=== PATIENT | male | born 1990 | race Two or more races ===

== ENCOUNTER 2017-05-02 10:16 | Inpatient (IN) | payer MEDICAID ==
[~2017-05-02] VITALS: Ht 177.8 cm; Wt 68.2 kg
[~2017-05-02 10:16] MED LIST: IBUP-1986 PO; NO HOME MEDS
[2017-05-02] MEDS ORDERED: TETanus/Pertussis (Acell)/Diphther VAC/PF (Tdap-Adult) 0.5ml syringe IM ONE (10:25)
[2017-05-02] MEDS ORDERED: LORazepam 1 MG tablet PO ONE (10:40)
[2017-05-02 10:47] LABS: BASOPHILS # (AUTO) 0.1 X10'3 (0-0.2); BASOPHILS % (AUTO) 0.2 % (0-1); EOSINOPHILS % (AUTO) 0 % (0-6); HEMATOCRIT 47.9 % (42.0-52.0); HEMOGLOBIN 16.8 g/dl (14.0-17.9); LYMPHOCYTES # (AUTO) 1.1 X10'3 (1.1-4.8); LYMPHOCYTES % (AUTO) 3.9 % (21-51); MEAN CORPUSCULAR HEMOGLOBIN 30.5 PG (27.0-31.0); MEAN CORPUSCULAR HGB CONC 35.1 % (33.0-36.5); MEAN CORPUSCULAR VOLUME 86.8 FL (78-98); MEAN PLATELET VOLUME 7.2 FL (7.4-10.4); MONOCYTES # (AUTO) 2.3 X10'3 (0-0.9); MONOCYTES % (AUTO) 8.1 % (2-12); NEUTROPHILS # (AUTO) 25.4 X10'3 (1.8-7.7); NEUTROPHILS % (AUTO) 87.8 % (42-75); PLATELET COUNT 347 X10'3 (140-440); RED BLOOD COUNT 5.51 X10'6 (4.70-6.10); RED CELL DISTRIBUTION WIDTH 12.1 % (11.5-14.5)
[2017-05-02] MEDS ORDERED: diphenhydrAMINE 50 mg/ml inj IM ONE (10:50)
[2017-05-02] MEDS ORDERED: LORazepam 2 mg/ml vial IM ONE (10:50)
[2017-05-02 10:57] LABS: WHITE BLOOD COUNT 28.9 X10'3 (4.5-11.0)
[2017-05-02] MEDS ORDERED: haloperidol lactate 5mg/ml inj IM ONE (11:05)
[2017-05-02 11:07] LABS: ALANINE AMINOTRANSFERASE 51 U/L (12-78); ALBUMIN 4.6 G/DL (3.4-5.0); ALKALINE PHOSPHATASE 98 IU/L (46-116); ANION GAP 14 (8-16); ASPARTATE AMINO TRANSFERASE 79 U/L (10-37); BILIRUBIN,TOTAL 0.8 MG/DL (0.1-1.0); BLOOD UREA NITROGEN 26 MG/DL (7-18); BUN/CREATININE RATIO 10.5 (5.4-32.0); CALCIUM 9.4 MG/DL (8.5-10.1); CHLORIDE 96 MMOL/L (99-107); CREATININE 2.48 MG/DL (0.60-1.10); GLUCOSE 88 MG/DL (70-104); POTASSIUM 4.5 MMOL/L (3.5-5.1); SODIUM 135 MMOL/L (135-145); TOTAL CARBON DIOXIDE 25.3 MMOL/L (24-32); eGFR 31 ML/MIN
[2017-05-02 11:10] LABS: ETHANOL < 0.010 GM/DL (0.0-0.010)
[2017-05-02 11:16] LABS: TOTAL CELLS COUNTED 100
[2017-05-02 11:19] LABS: PLATELET ESTIMATE NORMAL; TOXIC GRANULATION 1+; TOXIC VACUOLATION FEW
[2017-05-02 11:31] LABS: CLARITY,URINE CLOUDY (Clear); COLOR,URINE YELLOW (Yellow); GLUCOSE, URINE NEGATIVE (Neg); KETONES,URINE TRACE mg/dl (Neg); LEUKOCYTE ESTERASE ,URINE NEGATIVE (Neg); NITRITES, URINE NEGATIVE (Neg); OCCULT BLOOD,URINE LARGE (Neg); PH,URINE 5.5 (4.8-8.0); PROTEIN,URINE 100 mg/dl (Neg); UA COLLECTION TYPE STRAIGHT CATH; UROBILINOGEN,URINE 0.2 E.U/dL (0.2-1.0)
[2017-05-02 11:40] LABS: SQUAMOUS EPITHELIAL CELL,UR MODERATE /LPF (FEW)
[2017-05-02 11:41] LABS: SPERM MANY /HPF (NEGATIVE); URINE AMPHETAMINE SCREEN POSITIVE (Neg); URINE BARBITUATE SCREEN NEGATIVE (Neg); URINE BENZODIAZEPINES SCREEN NEGATIVE (Neg); URINE CANNABINOID SCREEN NEGATIVE (Neg); URINE COCAINE SCREEN NEGATIVE (Neg); URINE METHADONE SCREEN NEGATIVE (Neg); URINE OPIATE SCREEN NEGATIVE (Neg); URINE PHENCYCLIDINE SCREEN NEGATIVE (Neg)
[2017-05-02 11:43] LABS: AMORPHOUS URATES 2+; BACTERIA,URINE FEW /HPF (Neg); RBC,URINE 0-2 /HPF (0-2); WBC,URINE 0-4 /HPF (0-4)
[2017-05-02] MEDS ORDERED: CefTRIAXone 2gm/D5W 50ml 50 ML IV ONE (12:25)
[2017-05-02] MEDS ORDERED: normal saline 1000ML IV soln IV ONE (12:25)
[2017-05-02 13:11] LABS: MAGNESIUM 3.8 MG/DL (1.5-2.4)
[2017-05-02 13:12] LABS: CKMB RELATIVE INDEX 0.6 RATIO (0-2.5); CREATINE KINASE 3238 U/L (39-308)
[2017-05-02] MEDS: normal saline 1000ml 1,000 ML IV SCH (17:21)
[2017-05-02] MEDS: LORazepam 2 mg/ml vial IV SCH (18:29)
[2017-05-02] MEDS ORDERED: heparin, porcine 5000 units/ml vial SQ SCH (20:00)
[2017-05-02] MEDS: heparin, porcine 5000 units/ml vial SQ SCH (20:13)
[2017-05-03 01:10] VITALS: BP 126/86
[2017-05-03 06:00] VITALS: BP 131/73
[2017-05-03] MEDS: normal saline 1000ml 1,000 ML IV SCH ×4 (06:30→23:30)
[2017-05-03] MEDS: LORazepam 2 mg/ml vial IV SCH ×3 (08:00→12:42)
[2017-05-03] MEDS ORDERED: pantoprazole 40 MG vial IV SCH (08:00)
[2017-05-03] MEDS: CefTRIAXone/D5W-Rocephin 1gm 50 ML IV SCH (09:02)
[2017-05-03] MEDS: pantoprazole 40mg Tablet.DR PO SCH (09:03)
[2017-05-03] MEDS: heparin, porcine 5000 units/ml vial SQ SCH ×2 (09:04→20:00)
[2017-05-03 10:00] VITALS: BP 143/67
[2017-05-03 10:07] LABS: BASOPHILS # (AUTO) 0.1 X10'3 (0-0.2); BASOPHILS % (AUTO) 0.4 % (0-1); EOSINOPHILS # (AUTO) 0.2 X10'3 (0-0.9); EOSINOPHILS % (AUTO) 1.1 % (0-6); HEMATOCRIT 38.2 % (42.0-52.0); HEMOGLOBIN 13.4 g/dl (14.0-17.9); LYMPHOCYTES # (AUTO) 1.6 X10'3 (1.1-4.8); LYMPHOCYTES % (AUTO) 11.5 % (21-51); MEAN CORPUSCULAR HEMOGLOBIN 31.2 PG (27.0-31.0); MEAN CORPUSCULAR HGB CONC 34.9 % (33.0-36.5); MEAN CORPUSCULAR VOLUME 89.3 FL (78-98); MEAN PLATELET VOLUME 7.7 FL (7.4-10.4); MONOCYTES # (AUTO) 1.6 X10'3 (0-0.9); MONOCYTES % (AUTO) 11.1 % (2-12); NEUTROPHILS # (AUTO) 10.7 X10'3 (1.8-7.7); NEUTROPHILS % (AUTO) 75.9 % (42-75); PLATELET COUNT 257 X10'3 (140-440); RED BLOOD COUNT 4.28 X10'6 (4.70-6.10); RED CELL DISTRIBUTION WIDTH 12.3 % (11.5-14.5); WHITE BLOOD COUNT 14.1 X10'3 (4.5-11.0)
[2017-05-03] MEDS: HYDROcodone/acetaminophen 10/325mg tab PO PRN ×3 (10:21→21:29)
[2017-05-03 10:30] LABS: ALBUMIN 2.9 G/DL (3.4-5.0); ANION GAP 10 (8-16); BLOOD UREA NITROGEN 24 MG/DL (7-18); BUN/CREATININE RATIO 19.8 (5.4-32.0); CHLORIDE 106 MMOL/L (99-107); CREATININE 1.21 MG/DL (0.60-1.10); GLUCOSE 109 MG/DL (70-104); POTASSIUM 4.3 MMOL/L (3.5-5.1); SODIUM 139 MMOL/L (135-145); TOTAL CARBON DIOXIDE 23.3 MMOL/L (24-32); eGFR 71 ML/MIN
[2017-05-03] MEDS ORDERED: LORazepam 2 mg/ml vial IV PRN (16:15)
[2017-05-03] MEDS ORDERED: LORazepam 1 MG tablet PO PRN (17:05)
[2017-05-03] MEDS: nicotine 14mg patch - 24hr TD SCH (17:10)
[2017-05-03 17:13] LABS: CKMB RELATIVE INDEX 0.3 RATIO (0-2.5); CREATINE KINASE 5161 U/L (39-308)
[2017-05-03] MEDS ORDERED: OLANZapine 5mg rapidly disint. tablet PO ONE (17:15)
[2017-05-03] MEDS ORDERED: diphenhydrAMINE 50 mg/ml inj IM ONE (17:40)
[2017-05-03] MEDS ORDERED: haloperidol lactate 5mg/ml inj IM ONE (17:40)
[2017-05-03] MEDS ORDERED: LORazepam 2 mg/ml vial IM ONE (17:40)
[2017-05-03 18:00] VITALS: BP 118/60
[2017-05-03 22:00] VITALS: BP 132/83
[2017-05-04] MEDS ORDERED: LORazepam 1 MG tablet PO SCH
[2017-05-04] MEDS: LORazepam 2 mg/ml vial IV SCH ×5 (00:39→20:45)
[2017-05-04] MEDS: normal saline 1000ml 1,000 ML IV SCH ×4 (02:30→19:40)
[2017-05-04 06:00] VITALS: BP 113/75
[2017-05-04] MEDS: HYDROcodone/acetaminophen 10/325mg tab PO PRN ×2 (07:56→17:13)
[2017-05-04 08:20] VITALS: BP 121/72
[2017-05-04] MEDS: pantoprazole 40mg Tablet.DR PO SCH (08:28)
[2017-05-04] MEDS: CefTRIAXone/D5W-Rocephin 1gm 50 ML IV SCH (08:28)
[2017-05-04] MEDS: heparin, porcine 5000 units/ml vial SQ SCH ×2 (08:29→20:45)
[2017-05-04] MEDS: OLANZapine 5mg rapidly disint. tablet PO SCH (08:29)
[2017-05-04] MEDS: nicotine 14mg patch - 24hr TD SCH (08:30)
[2017-05-04 10:32] VITALS: BP 132/62
[2017-05-04 12:59] VITALS: BP 127/78
[2017-05-04 16:02] LABS: BASOPHILS # (AUTO) 0.1 X10'3 (0-0.2); BASOPHILS % (AUTO) 0.7 % (0-1); EOSINOPHILS # (AUTO) 0.1 X10'3 (0-0.9); HEMATOCRIT 37.3 % (42.0-52.0); LYMPHOCYTES # (AUTO) 3.1 X10'3 (1.1-4.8); LYMPHOCYTES % (AUTO) 35.8 % (21-51); MEAN CORPUSCULAR HEMOGLOBIN 30.9 PG (27.0-31.0); MEAN CORPUSCULAR HGB CONC 34.8 % (33.0-36.5); MEAN CORPUSCULAR VOLUME 88.9 FL (78-98); MEAN PLATELET VOLUME 8.1 FL (7.4-10.4); MONOCYTES # (AUTO) 1.1 X10'3 (0-0.9); MONOCYTES % (AUTO) 12.4 % (2-12); NEUTROPHILS # (AUTO) 4.3 X10'3 (1.8-7.7); NEUTROPHILS % (AUTO) 50.1 % (42-75); PLATELET COUNT 242 X10'3 (140-440); RED BLOOD COUNT 4.19 X10'6 (4.70-6.10); RED CELL DISTRIBUTION WIDTH 12.5 % (11.5-14.5); WHITE BLOOD COUNT 8.7 X10'3 (4.5-11.0)
[2017-05-04 16:12] LABS: ALBUMIN 2.8 G/DL (3.4-5.0); ANION GAP 8 (8-16); BLOOD UREA NITROGEN 8 MG/DL (7-18); BUN/CREATININE RATIO 9.6 (5.4-32.0); CALCIUM 8.6 MG/DL (8.5-10.1); CHLORIDE 109 MMOL/L (99-107); CREATININE 0.83 MG/DL (0.60-1.10); GLUCOSE 99 MG/DL (70-104); POTASSIUM 4.3 MMOL/L (3.5-5.1); SODIUM 145 MMOL/L (135-145); TOTAL CARBON DIOXIDE 27.8 MMOL/L (24-32); eGFR > 90 ML/MIN
[2017-05-04 18:00] VITALS: BP 129/78
[2017-05-04 19:12] LABS: CREATINE KINASE 3505 U/L (39-308)
[2017-05-04 19:13] LABS: CKMB RELATIVE INDEX 0.1 RATIO (0-2.5)
[2017-05-04 22:00] VITALS: BP 138/80
[2017-05-05] MEDS: normal saline 1000ml 1,000 ML IV SCH ×3 (02:15→21:22)
[2017-05-05] MEDS: LORazepam 2 mg/ml vial IV SCH (02:54)
[2017-05-05 06:00] VITALS: BP 138/84
[2017-05-05] MEDS: HYDROcodone/acetaminophen 10/325mg tab PO PRN ×2 (08:09→19:34)
[2017-05-05] MEDS: pantoprazole 40mg Tablet.DR PO SCH (08:50)
[2017-05-05] MEDS: OLANZapine 5mg rapidly disint. tablet PO SCH (08:50)
[2017-05-05] MEDS: nicotine 14mg patch - 24hr TD SCH (08:51)
[2017-05-05] MEDS: heparin, porcine 5000 units/ml vial SQ SCH ×2 (08:51→19:34)
[2017-05-05] MEDS: CefTRIAXone/D5W-Rocephin 1gm 50 ML IV SCH (08:52)
[2017-05-05 09:57] LABS: BASOPHILS # (AUTO) 0.1 X10'3 (0-0.2); BASOPHILS % (AUTO) 0.9 % (0-1); EOSINOPHILS # (AUTO) 0.1 X10'3 (0-0.9); EOSINOPHILS % (AUTO) 1.7 % (0-6); HEMATOCRIT 37.1 % (42.0-52.0); LYMPHOCYTES # (AUTO) 2.2 X10'3 (1.1-4.8); LYMPHOCYTES % (AUTO) 26.1 % (21-51); MEAN CORPUSCULAR HEMOGLOBIN 30.8 PG (27.0-31.0); MEAN CORPUSCULAR HGB CONC 35.1 % (33.0-36.5); MEAN CORPUSCULAR VOLUME 87.9 FL (78-98); MEAN PLATELET VOLUME 8.2 FL (7.4-10.4); MONOCYTES # (AUTO) 1.1 X10'3 (0-0.9); MONOCYTES % (AUTO) 12.5 % (2-12); NEUTROPHILS % (AUTO) 58.8 % (42-75); PLATELET COUNT 256 X10'3 (140-440); RED BLOOD COUNT 4.22 X10'6 (4.70-6.10); RED CELL DISTRIBUTION WIDTH 12.1 % (11.5-14.5); WHITE BLOOD COUNT 8.5 X10'3 (4.5-11.0)
[2017-05-05 10:00] VITALS: BP 129/82
[2017-05-05 10:06] LABS: INR 0.9 INR; PROTHROMBIN TIME 9.6 SECONDS (9.0-12.0)
[2017-05-05 10:07] LABS: ALBUMIN 2.8 G/DL (3.4-5.0); ANION GAP 9 (8-16); BLOOD UREA NITROGEN 7 MG/DL (7-18); BUN/CREATININE RATIO 7.2 (5.4-32.0); CALCIUM 8.3 MG/DL (8.5-10.1); CHLORIDE 107 MMOL/L (99-107); CREATININE 0.97 MG/DL (0.60-1.10); GLUCOSE 119 MG/DL (70-104); MAGNESIUM 1.2 MG/DL (1.5-2.4); SODIUM 144 MMOL/L (135-145); TOTAL CARBON DIOXIDE 28.4 MMOL/L (24-32); eGFR > 90 ML/MIN
[2017-05-05] MEDS ORDERED: magnesium 2GM in 50ml NS 50 ML IV PRN (13:05)
[2017-05-05] MEDS ORDERED: potassium Cl 40MEQ/NS 500ml 500 ML IV PRN ×2 (13:05)
[2017-05-05] MEDS ORDERED: magnesium 4gm in 100ml NS 100 ML IV PRN (13:05)
[2017-05-05] MEDS ORDERED: potassium Cl 20 mEq SR tablet PO PRN ×2 (13:05)
[2017-05-05] MEDS: ibuprofen tablet 400 MG TABLET PO PRN ×2 (13:58→22:19)
[2017-05-05] MEDS: magnesium Cl slow-release 64mg tablet PO PRN ×2 (13:58→21:16)
[2017-05-05 14:27] LABS: CREATINE KINASE 3376 U/L (39-308)
[2017-05-05 18:00] VITALS: BP 161/97
[2017-05-05] MEDS: lactobacillus rhamnosus 10,000 MMU CELLS/CAPSULE PO SCH (19:33)
[2017-05-05] MEDS: LORazepam 2 mg/ml vial IV PRN (21:16)
[2017-05-05 22:00] VITALS: BP 139/78
[2017-05-05] MEDS ORDERED: LORazepam 2 mg/ml vial IV ONE (22:30)
[2017-05-05] MEDS: QUEtiapine 25mg tablet PO SCH (23:01)
[2017-05-06] MEDS: normal saline 1000ml 1,000 ML IV SCH ×4 (00:30→14:01)
[2017-05-06 06:09] LABS: MAGNESIUM 1.6 MG/DL (1.5-2.4)
[2017-05-06 07:00] VITALS: BP 124/78
[2017-05-06] MEDS: CefTRIAXone/D5W-Rocephin 1gm 50 ML IV SCH (07:44)
[2017-05-06] MEDS: lactobacillus rhamnosus 10,000 MMU CELLS/CAPSULE PO SCH ×2 (07:45→19:51)
[2017-05-06] MEDS: HYDROcodone/acetaminophen 10/325mg tab PO PRN ×3 (07:45→19:12)
[2017-05-06] MEDS: pantoprazole 40mg Tablet.DR PO SCH (07:45)
[2017-05-06] MEDS: nicotine 14mg patch - 24hr TD SCH (07:45)
[2017-05-06] MEDS: benztropine 1mg tablet PO SCH ×2 (07:45→19:51)
[2017-05-06] MEDS: heparin, porcine 5000 units/ml vial SQ SCH ×2 (07:45→19:52)
[2017-05-06] MEDS: haloperidol 5mg tablet PO SCH ×2 (07:45→19:51)
[2017-05-06 08:06] LABS: ANION GAP 9 (8-16); BLOOD UREA NITROGEN 11 MG/DL (7-18); BUN/CREATININE RATIO 16.7 (5.4-32.0); CALCIUM 8.8 MG/DL (8.5-10.1); CHLORIDE 107 MMOL/L (99-107); CREATININE 0.66 MG/DL (0.60-1.10); GLUCOSE 87 MG/DL (70-104); SODIUM 145 MMOL/L (135-145); eGFR > 90 ML/MIN
[2017-05-06 08:09] LABS: CREATINE KINASE 2342 U/L (39-308)
[2017-05-06 10:00] VITALS: BP 108/61
[2017-05-06] MEDS: LORazepam 2 mg/ml vial IV PRN ×2 (14:52→21:04)
[2017-05-06 17:53] VITALS: BP 108/61
[2017-05-06 18:30] VITALS: BP 115/59
[2017-05-06] MEDS: QUEtiapine 25mg tablet PO SCH (21:05)
[2017-05-06 22:00] VITALS: BP 123/64
[2017-05-07] MEDS: normal saline 1000ml 1,000 ML IV SCH ×2 (03:50→09:45)
[2017-05-07 06:00] VITALS: BP 124/60
[2017-05-07 06:22] LABS: MAGNESIUM 1.6 MG/DL (1.5-2.4)
[2017-05-07] MEDS: CefTRIAXone/D5W-Rocephin 1gm 50 ML IV SCH (08:01)
[2017-05-07] MEDS: haloperidol 5mg tablet PO SCH (08:01)
[2017-05-07] MEDS: heparin, porcine 5000 units/ml vial SQ SCH (08:01)
[2017-05-07] MEDS: lactobacillus rhamnosus 10,000 MMU CELLS/CAPSULE PO SCH (08:01)
[2017-05-07] MEDS: benztropine 1mg tablet PO SCH (08:02)
[2017-05-07] MEDS: pantoprazole 40mg Tablet.DR PO SCH (08:02)
[2017-05-07] MEDS: nicotine 14mg patch - 24hr TD SCH (08:09)
== END 2017-05-07 10:30 | disposition left against medical advice (07) | DRG 384 ==
LOC: ER 10:16 → EEVIPCON 10:16 → ED HOLD 13:55 → EDBEDREQ 16:52 → ORTHO 4S 05-03 01:05 → CMPBEDREQ 05-03 01:41
PROVIDERS: ADMIT Family Medicine; ATTEND Family Medicine
DX: S00.03XA Contusion of scalp, initial encounter (principal); G92 Toxic encephalopathy; N17.9 Acute kidney failure, unspecified; M62.82 Rhabdomyolysis; S06.0X0A Concussion without loss of consciousness, initial encounter; S40.812A Abrasion of left upper arm, initial encounter; F32.9 Major depressive disorder, single episode, unspecified; F15.10 Other stimulant abuse, uncomplicated; S50.812A Abrasion of left forearm, initial encounter; E86.0 Dehydration; S00.83XA Contusion of other part of head, initial encounter; M54.9 Dorsalgia, unspecified; S20.412A Abrasion of left back wall of thorax, initial encounter; S80.812A Abrasion, left lower leg, initial encounter; Z53.21 Procedure and treatment not carried out due to patient leaving prior to being seen by health care provider; J34.2 Deviated nasal septum; R31.9 Hematuria, unspecified; X58.XXXA Exposure to other specified factors, initial encounter; F22 Delusional disorders; S00.81XA Abrasion of other part of head, initial encounter; Z87.891 Personal history of nicotine dependence; Z79.899 Other long term (current) drug therapy; Y93.89 Activity, other specified; Y92.89 Other specified places as the place of occurrence of the external cause; Y99.8 Other external cause status
CPT/HCPCS: 36415; 70450; 70486; 70551; 71045; 72125; 72128; 72131; 73030; 73070; 76775; 80048; 80053; 80305; 80320; 81001; 82550; 82553; 83605; 83735; 84132; 84145; 84443; 85025; 85610; 87040; 87070; 90471; 90715; 93005; 96365; 96372; 97116; 97161; 99285; A4310; A4344; J0696; J1200; J1630; J1644; J2060; J7030

== ENCOUNTER 2017-05-07 20:36 | Emergency (ER) | payer MEDICAID ==
[~2017-05-07] VITALS: Ht 172.7 cm; Wt 68.5 kg
[2017-05-07 21:02] VITALS: BP 126/88
== END 2017-05-07 22:04 | disposition left against medical advice (07) ==
LOC: ER 20:37
DX: R11.0 Nausea (principal); Z53.21 Procedure and treatment not carried out due to patient leaving prior to being seen by health care provider
CPT/HCPCS: 93005; 99281

== ENCOUNTER 2019-03-17 23:44 | Emergency (ER) | payer MEDICAID ==
[~2019-03-17] VITALS: Ht 170.2 cm; Wt 75.0 kg
--- NOTE | 2019-03-18 00:19 | NUR ---
CONTACTED JUAN FRANCISCO-SPOKE WITH GAVINO.
[2019-03-18] MEDS ORDERED: normal saline 1000ML IV soln IVB ONE (00:20)
[2019-03-18] MEDS ORDERED: normal saline 1000ML IV soln IV ONE (00:35)
[2019-03-18 00:54] LABS: BASOPHILS # (AUTO) 0.2 X10'3 (0-0.2); BASOPHILS % (AUTO) 0.6 % (0-1); EOSINOPHILS % (AUTO) 0 % (0-6); HEMATOCRIT 48.1 % (42.0-52.0); HEMOGLOBIN 16.8 g/dl (14.0-17.9); LYMPHOCYTES # (AUTO) 1.4 X10'3 (1.1-4.8); LYMPHOCYTES % (AUTO) 4.1 % (21-51); MEAN CORPUSCULAR HEMOGLOBIN 30.3 PG (27.0-31.0); MEAN CORPUSCULAR HGB CONC 34.9 g/dL (33.0-36.5); MEAN CORPUSCULAR VOLUME 86.8 FL (78-98); MEAN PLATELET VOLUME 7.7 FL (7.4-10.4); MONOCYTES # (AUTO) 2.4 X10'3 (0-0.9); MONOCYTES % (AUTO) 7.2 % (2-12); NEUTROPHILS # (AUTO) 29.1 X10'3 (1.8-7.7); NEUTROPHILS % (AUTO) 88.1 % (42-75); PLATELET COUNT 413 X10'3 (140-440); RED BLOOD COUNT 5.54 X10'6 (4.70-6.10); RED CELL DISTRIBUTION WIDTH 13.2 % (11.5-14.5)
[2019-03-18 01:10] LABS: ALANINE AMINOTRANSFERASE 40 U/L (12-78); ALBUMIN 4.2 G/DL (3.4-5.0); ALBUMIN/GLOBULIN RATIO 1.1 (1.1-1.5); ALKALINE PHOSPHATASE 109 IU/L (46-116); ANION GAP 15 (8-16); ASPARTATE AMINO TRANSFERASE 40 U/L (10-37); BILIRUBIN,TOTAL 0.3 MG/DL (0.1-1.0); BLOOD UREA NITROGEN 12 MG/DL (7-18); BUN/CREATININE RATIO 8.4 (5.4-32.0); CALCIUM 9.2 MG/DL (8.5-10.1); CHLORIDE 101 MMOL/L (99-107); CREATININE 1.43 MG/DL (0.60-1.10); GLUCOSE 129 MG/DL (70-104); POTASSIUM 3.3 MMOL/L (3.5-5.1); SODIUM 138 MMOL/L (135-145); TOTAL CARBON DIOXIDE 22.4 MMOL/L (24-32); TOTAL PROTEIN 8.1 G/DL (6.4-8.2); eGFR 58 ML/MIN
[2019-03-18 01:11] LABS: ETHANOL < 0.010 GM/DL (0.0-0.010)
[2019-03-18 01:22] LABS: PLATELET ESTIMATE NORMAL; TOTAL CELLS COUNTED 100
[2019-03-18] MEDS ORDERED: ketorolac trometh. 30mg/ml inj. IV ONE (01:30)
[2019-03-18 02:07] LABS: CLARITY,URINE CLEAR (Clear); COLOR,URINE YELLOW (Yellow); GLUCOSE, URINE NEGATIVE (Neg); KETONES,URINE NEGATIVE (Neg); LEUKOCYTE ESTERASE ,URINE NEGATIVE (Neg); NITRITES, URINE NEGATIVE (Neg); OCCULT BLOOD,URINE TRACE-INTACT (Neg); PH,URINE 6.5 (4.8-8.0); PROTEIN,URINE TRACE mg/dl (Neg); UROBILINOGEN,URINE 0.2 E.U/dL (0.2-1.0)
[2019-03-18 02:09] LABS: URINE AMPHETAMINE SCREEN POSITIVE (Neg); URINE BARBITUATE SCREEN NEGATIVE (Neg); URINE BENZODIAZEPINES SCREEN NEGATIVE (Neg); URINE CANNABINOID SCREEN NEGATIVE (Neg); URINE COCAINE SCREEN NEGATIVE (Neg); URINE METHADONE SCREEN NEGATIVE (Neg); URINE OPIATE SCREEN NEGATIVE (Neg); URINE PHENCYCLIDINE SCREEN NEGATIVE (Neg)
[2019-03-18 02:14] LABS: UA COLLECTION TYPE URINAL
[2019-03-18 02:16] LABS: BACTERIA,URINE NONE SEEN /HPF (Neg); RBC,URINE 0-2 /HPF (0-2); SQUAMOUS EPITHELIAL CELL,UR FEW /LPF (FEW); WBC,URINE 0-4 /HPF (0-4)
[2019-03-18 02:17] LABS: CELLULAR CAST 0-4 /LPF (NEGATIVE); SPERM MODERATE /HPF (NEGATIVE)
[2019-03-18] MEDS ORDERED: acetaminophen 325mg tablet PO ONE (02:25)
--- NOTE | 2019-03-18 02:30 | NUR ---
PT THREATENING TO LEAVE BECAUSE "YOU GUYS AREN'T DOING ANYTHING ABOUT MY CHEST". UPDATED PT ON PLAN OF CARE AND AWAITING LAB RESULTS. PT STILL ADAMIT THAT HE IS GOING TO LEAVE AND THREATENED TO TAKE OUT IV ON HIS OWN. LOLLY NOTIFIED. PT THEN CALLED FRIEND TO COME PICK HIM UP, FRIEND TALKED HIM INTO STAYING. PT AGAIN UPDATED ON PLAN OF CARE AND COMPLIANT. FRIEND STAYING AT BEDSIDE
[2019-03-18] MEDS ORDERED: LORazepam 2 mg/ml vial IV ONE (02:40)
[2019-03-18] MEDS ORDERED: piperacillin/tazo 3.375gm/50ml 50 ML IV ONE (02:45)
[2019-03-18 05:21] VITALS: BP 132/94
== END 2019-03-18 05:28 | disposition home or self-care (01) ==
LOC: ER 23:45
DX: S40.812A Abrasion of left upper arm, initial encounter (principal); S40.811A Abrasion of right upper arm, initial encounter; D72.829 Elevated white blood cell count, unspecified; F15.10 Other stimulant abuse, uncomplicated; R07.89 Other chest pain; F32.9 Major depressive disorder, single episode, unspecified; F17.200 Nicotine dependence, unspecified, uncomplicated; Z72.89 Other problems related to lifestyle; Z88.5 Allergy status to narcotic agent; Z79.899 Other long term (current) drug therapy; Y04.8XXA Assault by other bodily force, initial encounter; Y93.89 Activity, other specified; Y92.89 Other specified places as the place of occurrence of the external cause; Y99.8 Other external cause status
CPT/HCPCS: 36415; 71045; 80053; 80305; 80320; 81001; 82948; 83605; 84145; 85025; 86885; 86900; 86901; 87040; 93005; 96365; 96375; 99285; J1885; J2060; J2543; J7030

== ENCOUNTER 2019-03-31 10:40 | Emergency (ER) | payer MEDICAID ==
[~2019-03-31] VITALS: Ht 170.2 cm; Wt 69.1 kg
[2019-03-31 10:44] VITALS: BP 145/92
--- NOTE | 2019-03-31 10:59 | NUR ---
LAB WERE ORDERED, PT REFUSED LAB DRAW AT THIS TIME.
== END 2019-03-31 11:05 | disposition left against medical advice (07) ==
LOC: ER 10:42
DX: F60.0 Paranoid personality disorder (principal); Z53.21 Procedure and treatment not carried out due to patient leaving prior to being seen by health care provider

== ENCOUNTER 2019-09-03 10:40 | Emergency (ER) | payer MEDICAID ==
[~2019-09-03] VITALS: Ht 172.7 cm; Wt 65.9 kg
[2019-09-03] MEDS ORDERED: LORazepam 2 mg/ml vial IV ONE (11:00)
[2019-09-03] MEDS ORDERED: acetaminophen 325mg tablet PO ONE (11:00)
[2019-09-03] MEDS ORDERED: normal saline 1000ML IV soln IVB ONE (11:00)
[2019-09-03 11:25] LABS: BASOPHILS # (AUTO) 0.1 X10'3 (0-0.2); BASOPHILS % (AUTO) 0.6 % (0-1); EOSINOPHILS # (AUTO) 0.1 X10'3 (0-0.9); EOSINOPHILS % (AUTO) 0.5 % (0-6); HEMATOCRIT 48.6 % (42.0-52.0); HEMOGLOBIN 16.4 g/dl (14.0-17.9); LYMPHOCYTES # (AUTO) 4.5 X10'3 (1.1-4.8); LYMPHOCYTES % (AUTO) 27.2 % (21-51); MEAN CORPUSCULAR HEMOGLOBIN 29.8 PG (27.0-31.0); MEAN CORPUSCULAR HGB CONC 33.7 g/dL (33.0-36.5); MEAN CORPUSCULAR VOLUME 88.4 FL (78-98); MEAN PLATELET VOLUME 7.8 FL (7.4-10.4); MONOCYTES # (AUTO) 1.4 X10'3 (0-0.9); MONOCYTES % (AUTO) 8.6 % (2-12); NEUTROPHILS # (AUTO) 10.5 X10'3 (1.8-7.7); NEUTROPHILS % (AUTO) 63.1 % (42-75); PLATELET COUNT 388 X10'3 (140-440); WHITE BLOOD COUNT 16.7 X10'3 (4.5-11.0)
[2019-09-03 11:39] LABS: ALANINE AMINOTRANSFERASE 30 U/L (12-78); ALBUMIN 4.1 G/DL (3.4-5.0); ALBUMIN/GLOBULIN RATIO 1.1 (1.1-1.5); ALKALINE PHOSPHATASE 94 IU/L (46-116); ANION GAP 20 (8-16); ASPARTATE AMINO TRANSFERASE 33 U/L (10-37); BILIRUBIN,TOTAL 0.6 MG/DL (0.1-1.0); BLOOD UREA NITROGEN 13 MG/DL (7-18); BUN/CREATININE RATIO 9.7 (5.4-32.0); CHLORIDE 101 MMOL/L (99-107); CREATININE 1.34 MG/DL (0.60-1.10); GLUCOSE 155 MG/DL (70-104); POTASSIUM 3.5 MMOL/L (3.5-5.1); SODIUM 138 MMOL/L (135-145); TOTAL CARBON DIOXIDE 17.2 MMOL/L (24-32); eGFR 63 ML/MIN
[2019-09-03 11:41] LABS: CREATINE KINASE 327 U/L (39-308)
[2019-09-03 11:51] LABS: HIV ANTIBODY 1&2 RAPID NON-REACTIVE (Neg)
[2019-09-03 12:41] VITALS: BP 146/96
[2019-09-04 15:38] LABS: HBSAG SCREEN Negative (Negative); HEPATITIS C ANTIBODY <0.1 s/co ratio (0.0-0.9)
== END 2019-09-03 12:46 ==
LOC: ER 10:41
DX: S00.83XA Contusion of other part of head, initial encounter (principal); S00.511A Abrasion of lip, initial encounter; F15.10 Other stimulant abuse, uncomplicated; R00.0 Tachycardia, unspecified; M25.512 Pain in left shoulder; F32.9 Major depressive disorder, single episode, unspecified; Z72.89 Other problems related to lifestyle; Z88.5 Allergy status to narcotic agent; Z79.899 Other long term (current) drug therapy; Y08.89XA Assault by other specified means, initial encounter; Y93.89 Activity, other specified; Y92.89 Other specified places as the place of occurrence of the external cause; Y99.8 Other external cause status
CPT/HCPCS: 36415; 73030; 80053; 82550; 85025; 86703; 86706; 86803; 87340; 96374; 99284; J2060; J7030